=== PATIENT | female | born 1990 | race Caucasian/White ===

== ENCOUNTER 2018-07-21 14:50 | Emergency (ER) | payer SELFPAY ==
[~2018-07-21] VITALS: Ht 167.6 cm; Wt 70.3 kg
--- NOTE | 2018-07-21 14:55 | NUR ---
AAOX3, BIB C/O PALPITATION AND RINGING OF THE LEFT EAR FOR MONTHS. RR IS EVEN AND UNLABORED WITH NAD NOTED. SKIN IS WARM AND DRY. PLACED ON THE MONITOR. AWAITING MD FOR EVAL.
--- NOTE | 2018-07-21 15:23 | NUR ---
PONCE DISPLAYER MERCHANDISE AT BEDSIDE FOR EVAL.
[2018-07-21] MEDS ORDERED: IV NS 0.9% 1,000 ML BAG IV ONE (15:30)
--- NOTE | 2018-07-21 15:30 | NUR ---
IV LINE STARTD BLOOD DRAWN AND SENT TO LAB.
[2018-07-21 15:34] LABS: BASOPHILS # (AUTO) 0.1 /CMM (0.0-0.2); BASOPHILS % (AUTO) 0.8 % (0.0-2.0); EOSINOPHILS % (AUTO) 3.5 % (0.0-6.0); HEMATOCRIT 35 % (33-45); HEMOGLOBIN 11.2 g/dL (11.5-14.8); LYMPHOCYTES # (AUTO) 2.2 /CMM (0.8-4.8); LYMPHOCYTES % (AUTO) 32.2 % (20.0-44.0); MEAN CORPUSCULAR HGB CONC 32 g/dl (31.0-36.0); MEAN CORPUSCULAR VOLUME 78 fL (82-100); MONOCYTES # (AUTO) 0.6 /CMM (0.1-1.30); NEUTROPHILS # (AUTO) 3.6 /CMM (1.8-8.9); NEUTROPHILS % (AUTO) 54.5 % (43.0-81.0); PLATELET COUNT (AUTO) 392 /CMM (150-450); RED BLOOD CELL COUNT(AUTO) 4.47 MIL/uL (4.0-5.2); WHITE BLOOD COUNT (AUTO) 6.7 K/uL (4.3-11.0)
[2018-07-21 15:41] LABS: CALCIUM, SERUM 8.9 mg/dL (8.5-10.1); CARBON DIOXIDE 30 mmol/L (21-32); CHLORIDE 104 mmol/L (98-107); CREATININE 0.6 mg/dL (0.6-1.3); GLUCOSE 93 mg/dL (74-106); SODIUM SERUM 137 mmol/L (136-145); UREA NITROGEN, BLOOD 19 mg/dL (7-18)
[2018-07-21 15:49] LABS: ALANINE AMINOTRANSFERASE 23 U/L (12-78); ALBUMIN 3.8 g/dL (3.4-5.0); ALKALINE PHOSPHATASE 66 U/L (46-116); ASPARTATE AMINOTRANSFERASE 15 U/L (15-37); BILIRUBIN,DIRECT 0.1 mg/dL (0.0-0.2); BILIRUBIN,TOTAL 0.5 mg/dL (0.2-1.0); TOTAL PROTEIN, SERUM 7.6 g/dL (6.4-8.2)
[2018-07-21 16:45] VITALS: BP 128/67
== END 2018-07-21 16:45 | disposition home or self-care (01) ==
LOC: ER 14:52
DX: R00.2 Palpitations (principal); F41.9 Anxiety disorder, unspecified; H93.19 Tinnitus, unspecified ear; Z41.1 Encounter for cosmetic surgery
CPT/HCPCS: 36415; 71045-TC; 80048-TC; 80076-TC; 84443-TC; 84484-TC; 85025-TC; 85730-TC; J7030

== ENCOUNTER 2022-01-13 16:04 | Emergency (ER) | payer MEDICAID, OTHER ==
[~2022-01-13] VITALS: Ht 167.6 cm; Wt 72.6 kg
--- NOTE | 2022-01-13 17:05 | NUR ---
[place] [employer] MEMBER AT BEDSIDE FOR EVAL.
[2022-01-13] MEDS ORDERED: HYDROCODONE/APAP 5/325MG TABLET ONE (17:22)
[2022-01-13] MEDS ORDERED: ONDANSETRON 4 MG TAB.RAPDIS ONE (17:22)
[2022-01-13] MEDS: ONDANSETRON 4 MG TAB.RAPDIS SL ONE (17:25)
[2022-01-13] MEDS: HYDROCODONE/APAP 5/325MG TABLET PO ONE (17:25)
[2022-01-13 18:07] LABS: BASOPHILS % (AUTO) 0.6 % (0.0-2.0); EOSINOPHILS % (AUTO) 3.3 % (0.0-6.0); HEMATOCRIT 36 % (33-45); HEMOGLOBIN 11.4 g/dL (11.5-14.8); LYMPHOCYTES # (AUTO) 2.5 K/uL (0.8-4.8); LYMPHOCYTES % (AUTO) 30.2 % (20.0-44.0); MEAN CORPUSCULAR HGB CONC 32 g/dl (31.0-36.0); MEAN CORPUSCULAR VOLUME 79 fL (82-100); MONOCYTES # (AUTO) 0.7 K/uL (0.1-1.30); MONOCYTES % (AUTO) 8.5 % (2.0-12.0); NEUTROPHILS # (AUTO) 4.8 K/uL (1.8-8.9); NEUTROPHILS % (AUTO) 57.4 % (43.0-81.0); PLATELET COUNT (AUTO) 403 K/uL (150-450); RED BLOOD CELL COUNT(AUTO) 4.51 MIL/uL (4.0-5.2); WHITE BLOOD COUNT (AUTO) 8.4 K/uL (4.3-11.0)
[2022-01-13 18:15] LABS: CALCIUM, SERUM 8.9 mg/dL (8.5-10.1); CREATININE 0.6 mg/dL (0.6-1.3); POTASSIUM 3.7 mmol/L (3.5-5.1)
--- NOTE | 2022-01-13 18:32 | NUR ---
WAIVER SIGNED AND PLACED IN PT'S CHART
--- NOTE | 2022-01-13 18:34 | NUR ---
PT TO RADIOLOGY FOR HEAD AND C SPINE CT SCAN
--- NOTE | 2022-01-13 18:40 | NUR ---
PT RETURNED FROM CT VIA WHEELCHAIR
[2022-01-13] MEDS ORDERED: ONDA4TAB5 PO (19:16)
[2022-01-13] MEDS ORDERED: IBUP-1955 PO (19:16)
[2022-01-13 19:31] VITALS: BP 128/87
--- NOTE | 2022-01-13 19:31 | NUR ---
Patient discharged to home in stable condition. Written and verbal after care instructions given. Patient verbalizes understanding of instruction.
== END 2022-01-13 19:32 | disposition home or self-care (01) ==
LOC: ER 16:49
DX: S01.91XA Laceration without foreign body of unspecified part of head, initial encounter (principal); R11.0 Nausea; Z98.86 Personal history of breast implant removal; Z79.899 Other long term (current) drug therapy; W01.10XA Fall on same level from slipping, tripping and stumbling with subsequent striking against unspecified object, initial encounter; Y93.89 Activity, other specified; Y92.89 Other specified places as the place of occurrence of the external cause; Y99.8 Other external cause status
CPT/HCPCS: 99284; 72125; 70450; 85025; 80048; 36415; 85730; Q0162

== ENCOUNTER 2024-05-28 11:47 | Emergency (ER) | payer OTHER ==
[~2024-05-28] VITALS: Ht 167.6 cm; Wt 79.4 kg
[~2024-05-28 11:47] MED LIST: IBUP-1955 PO; ONDA4TAB5 PO
[2024-05-28 12:16] VITALS: BP 119/70; TEMP 97.6; O2SAT 98
== END 2024-05-28 15:17 | disposition home or self-care (01) ==
LOC: ER 11:49
DX: S93.512A Sprain of interphalangeal joint of left great toe, initial encounter (principal); Z79.899 Other long term (current) drug therapy; W01.10XA Fall on same level from slipping, tripping and stumbling with subsequent striking against unspecified object, initial encounter; Y93.89 Activity, other specified; Y92.89 Other specified places as the place of occurrence of the external cause; Y99.8 Other external cause status
CPT/HCPCS: 73660-TC